=== PATIENT | female | born 1965 | race Caucasian/White ===

== ENCOUNTER 2022-02-06 10:40 | Day surgery (SDC) | payer OTHER ==
[~2022-02-06] VITALS: Ht 180.3 cm; Wt 86.2 kg
[~2022-02-06 10:40] MED LIST: DESFLURANE 15 MIN GAS INH ONE; LIDOCAINE/EPI 1% 1:100000 20 ML VIAL INJ ONE; LR 1,000 ML IV.SOLN IV ONE; MIDAZOLAM HCL 5 MG/5 ML VIAL IVP ONE; NS 1000 ML IV.SOLN IV ONE; NS IRRIG SOLN 1000 ML IR ONE; ONDANSETRON HCL 4 MG/2 ML VIAL IVP ONE; PROPOFOL 200MG/ 20ML VIAL (DIPRIVAN) IV ONE; ROCURONIUM BROMIDE 10 MG/ML (ZEMURON) IV ONE; SUGAMMADEX SODIUM 200 MG/2 ML VIAL IV ONE; fentaNYL CITRATE 250 MCG/5 ML AMP IV ONE
[2022-02-06] MEDS ORDERED: LIDOCAINE 2%, 20 ML MDV INJ ONE (10:41)
[2022-02-06] MEDS ORDERED: MUPIROCIN 1 GM OIN.PF.APP NS ONE (10:41)
[2022-02-06] MEDS ORDERED: OXYMETAZOLINE HCL 0.05% NASAL SPRAY NS ONE (10:41)
[2022-02-06] MEDS ORDERED: ACETAMINOPHEN I.V. 1000 MG 100 ML IV ONE (13:59)
[2022-02-06] MEDS ORDERED: LR 1,000 ML IV SCH (14:15)
[2022-02-06] MEDS ORDERED: MIDAZOLAM HCL 2 MG/2 ML VIAL (VERSED) IVP PRN (14:15)
[2022-02-06] MEDS ORDERED: LABETALOL 100 MG/ 20ML VIAL IVP PRN (14:15)
[2022-02-06] MEDS ORDERED: hydrALAZINE HCL 20 MG/ML VIAL IVP PRN (14:15)
[2022-02-06] MEDS ORDERED: MEPERIDINE HCL/PF 25 MG/ML DISP.SYRIN IVP PRN (14:15)
[2022-02-06] MEDS ORDERED: METOCLOPRAMIDE HCL 10 MG/2 ML VIAL IVP PRN (14:15)
[2022-02-06] MEDS ORDERED: HYDROmorphone 1 MG/ML INJ. CARTRIDGE IVP PRN ×2 (14:15)
[2022-02-06 17:55] VITALS: BP_SYST 152
== END 2022-02-06 17:25 | disposition home or self-care (01) ==
LOC: SDS 10:40 → SMU 10:43 → SDS 17:25
PROVIDERS: ATTEND Otolaryngology
DX: J34.89 Other specified disorders of nose and nasal sinuses (principal); D38.5 Neoplasm of uncertain behavior of other respiratory organs; J34.2 Deviated nasal septum; J32.4 Chronic pansinusitis; N95.1 Menopausal and female climacteric states; J30.1 Allergic rhinitis due to pollen; K21.9 Gastro-esophageal reflux disease without esophagitis; K58.9 Irritable bowel syndrome, unspecified
CPT/HCPCS: 36415; 87426; 31255; 30140; 30520; 31256; 88304; 88305; 88311; J3490; J2001; J2250; J2405; J2704; J3010; J7120; J7030; J0131